=== PATIENT | female | born 1955 | race Caucasian/White ===

== ENCOUNTER → 2019-10-13 | Outpatient (CLI) | payer OTHER | END | disposition home or self-care (01) | LOC: CFH 10:25 | PROVIDERS: ATTEND Family Medicine | DX: J32.8 Other chronic sinusitis (principal); J34.2 Deviated nasal septum; Z88.5 Allergy status to narcotic agent | CPT/HCPCS: 70486 ==

== ENCOUNTER 2020-04-04 09:29 | Outpatient (CLI) | payer OTHER | END 2020-04-04 23:59 | disposition home or self-care (01) | LOC: CFH 09:29 | PROVIDERS: ATTEND Family Medicine | DX: Z12.31 Encounter for screening mammogram for malignant neoplasm of breast (principal) | CPT/HCPCS: 76641; 77063; 77067 ==